=== PATIENT | female | born 1970 | race Caucasian/White ===

== ENCOUNTER 2018-05-06 17:56 | Emergency (ER) | payer MEDICAID ==
[~2018-05-06] VITALS: Ht 160 cm; Wt 89.4 kg
[2018-05-06 18:15] VITALS: BP 148/82
== END 2018-05-06 19:51 | disposition home or self-care (01) ==
LOC: ED 19:45
DX: I80.02 Phlebitis and thrombophlebitis of superficial vessels of left lower extremity (principal)
CPT/HCPCS: 99284